=== PATIENT | male | born 1980 | race Hispanic/Latino ===

== ENCOUNTER 2022-11-13 07:14 | Emergency (ER) | payer SELFPAY ==
[2022-11-13 07:20] VITALS: BP 135/88
[2022-11-13 08:06] VITALS: BP 135/88
[2022-11-13] MEDS ORDERED: CEPHALEXIN500 M1 PO (09:21)
== END 2022-11-13 08:36 | disposition home or self-care (01) | DRG 605 ==
LOC: ED 07:14
PROC: 0HQEXZZ Repair Left Lower Arm Skin, External Approach (ICD-10-PCS; principal; 2022-11-13)
DX: S61.512A Laceration without foreign body of left wrist, initial encounter (principal); E05.90 Thyrotoxicosis, unspecified without thyrotoxic crisis or storm; W26.0XXA Contact with knife, initial encounter; Y93.89 Activity, other specified; Y92.89 Other specified places as the place of occurrence of the external cause; Y99.0 Civilian activity done for income or pay